=== PATIENT | male | born 1975 | race Caucasian/White ===

== ENCOUNTER 2016-04-21 18:03 | Emergency (ER) | payer BC ==
[2016-04-21] MEDS ORDERED: methylPREDNISolone SODIUM SUC 125 MG/2 ML VIAL IM ONE (18:30)
[2016-04-21] MEDS ORDERED: diphenhydrAMINE HCL 50 MG/ML VIAL IM ONE (18:30)
--- NOTE | 2016-04-21 18:52 | ED.PDOC ---
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 C/O SWELLING, RINGING IN EARS, NUMBNESS TO HANDS AND FEET. - History of Present Illness Timing/Duration: 1 hour Severity: moderate Improving Factors: nothing Worsening Factors: nothing Associated Symptoms: other - SEE ABOVE Allergies/Adverse Reactions: Allergies Meperidine [From Demerol HCl] Allergy (Verified 04/21/16 18:29) Home Medications: Ambulatory Orders Epinephrine [Epipen 2-Rigo] 0.3 mg IJ ONCE PRN #2 ml 04/21/16 Methylprednisolone [Medrol Dose Rigo] 4 mg PO DAILY #1 tab 04/21/16 Review of Systems - Review of Systems Constitutional: Denies: chills, fever EENTM: Denies: eye pain, blurred vision, throat pain, throat swelling, mouth pain, mouth swelling Respiratory: Denies: cough, short of breath, wheezing Cardiology: Denies: chest pain, palpitations Gastrointestinal/Abdominal: Denies: abdominal pain, nausea, vomiting Genitourinary: Denies: dysuria, hematuria Musculoskeletal: Denies: back pain, neck pain Skin: States: other - WHELPS TO L LOWER ARM, EXTENSOR SURFACE Neurological: States: numbness - HANDS. Denies: weakness Endocrine: Denies: excessive sweating, flushing Hematologic/Lymphatic: States: no symptoms reported Physical Exam - Physical Exam General Appearance: Alert, Comfortable Ears, Nose, Throat: normal ENT inspection, normal pharynx Neck: full range of motion, supple, normal inspection Respiratory: lungs clear, normal breath sounds, no respiratory distress, no accessory muscle use Cardiovascular/Chest: regular rate, rhythm, no murmur Gastrointestinal/Abdominal: non tender, soft, no organomegaly Back Exam: no CVA tenderness, no vertebral tenderness Extremity: other - WHELPS TO L ARM, JUST DISTAL TO ELBOW WITHOUT LYMPHANGITIS, NVI, GOOD CAP REFILL Skin Exam: normal color, rash Lymphatic: no adenopathy Departure - Departure Clinical Impression: Urticaria Insect stings Qualifiers: Encounter type: initial encounter Injury intent: accidental or unintentional Qualifier Code: (T63.481A) Toxic effect of venom of other arthropod, accidental (unintentional), initial encounter Time of Disposition: 18:56 Disposition: Discharge to Home or Self Care Condition: Good Departure Forms: ED Discharge - Pt. Copy, Patient Portal Self Enrollment Instructions: How to Care for an Insect Bite or Sting Prescriptions: Epinephrine [Epipen 2-Rigo] 0.3 mg IJ ONCE PRN #2 ml PRN Reason: ALLERGIC REACTION Methylprednisolone [Medrol Dose Rigo] 4 mg PO DAILY #1 tab Home Medications: Ambulatory Orders Epinephrine [Epipen 2-Rigo] 0.3 mg IJ ONCE PRN #2 ml 04/21/16 Methylprednisolone [Medrol Dose Rigo] 4 mg PO DAILY #1 tab 04/21/16
[2016-04-21 18:58] VITALS: BP 132/80; TEMP 97.6; O2SAT 98
== END 2016-04-21 19:10 | disposition home or self-care (01) ==
LOC: ER 18:03
DX: T63.481A Toxic effect of venom of other arthropod, accidental (unintentional), initial encounter (principal); L50.9 Urticaria, unspecified